=== PATIENT | female | born 1940 | race African-American/Black ===

== ENCOUNTER 2023-08-22 13:43 | Inpatient (IN) | payer MEDICARE, OTHER ==
[~2023-08-22] VITALS: Ht 160 cm; Wt 76.0 kg
[2023-08-22] MEDS ORDERED: TELM80TA10 PO (13:48)
[2023-08-22] MEDS ORDERED: LATA2.5D14 OU (13:48)
[2023-08-22] MEDS ORDERED: NIFE90TA72 PO (13:48)
[2023-08-22] MEDS ORDERED: CARV25TA32 PO (13:48)
[2023-08-22] MEDS ORDERED: CLOP75TA32 PO (13:48)
[2023-08-22] MEDS ORDERED: SPIR50TA27 PO (13:48)
[2023-08-22] MEDS ORDERED: SPIR100T5 PO (13:48)
[2023-08-22] MEDS ORDERED: ACET325T51 PO (13:48)
[2023-08-22] MEDS ORDERED: RABE20TA30 PO (13:48)
[2023-08-22] MEDS ORDERED: ATOR40TA71 PO (13:48)
[2023-08-22] MEDS ORDERED: SODIUM CHLORIDE 0.9% 100 ML ONE ×2 (14:13)
[2023-08-22] MEDS ORDERED: IOHEXOL 350 MG/ML 100 ML VIAL ONE (14:13)
[2023-08-22] MEDS ORDERED: LABETALOL HCL 5 MG/ML 20 ML VIAL IVP PRN (14:15)
[2023-08-22] MEDS: TENECTEPLASE PER STROKE PROTOCOL CLINICAL ONE (14:15)
[2023-08-22] MEDS ORDERED: NiCARDipine HCL 25 MG in SODIUM CHLORIDE 0.9% 240 ML IV PRN (14:15)
[2023-08-22] MEDS ORDERED: ACETAMINOPHEN 650 MG RECTAL SUPPOSITORY PR PRN (14:15)
[2023-08-22] MEDS ORDERED: DEXTROSE 50%-WATER 25 GM/50 ML SYRINGE IVP PRN (14:15)
[2023-08-22] MEDS ORDERED: HYDROmorphone HCL 2 MG/ML SYRINGE IVP PRN (14:15)
[2023-08-22] MEDS ORDERED: MORPHINE SULFATE 4 MG/ML SYRINGE IVP PRN (14:15)
[2023-08-22] MEDS ORDERED: MORPHINE SULFATE 2 MG/ML SYRINGE IVP PRN ×2 (14:15→19:00)
[2023-08-22] MEDS ORDERED: ACETAMINOPHEN 1000 MG/ISO-OSM 100 ML IV PRN (14:15)
[2023-08-22] MEDS ORDERED: ONDANSETRON HCL 4 MG/2 ML VIAL IVP PRN ×2 (14:15→19:00)
[2023-08-22] MEDS: TENECTEPLASE 50 MG/10 ML KIT IVP ONE (14:25)
[2023-08-22 14:27] LABS: BASOPHILS % (AUTO) 0.8 % (0.0-2.0); EOSINOPHILS % (AUTO) 5.5 % (1.0-6.0); HEMATOCRIT 33.5 % (36-46); HEMOGLOBIN 11.1 g/dL (12.0-16.0); LYMPHOCYTES # (AUTO) 1.6 K/uL (1.0-4.8); LYMPHOCYTES % (AUTO) 22.5 % (22.0-44.0); MEAN CORPUSCULAR HEMOGLOBIN 31.8 pg (26.0-34.0); MEAN CORPUSCULAR HGB CONC 33.1 G/dL (31.0-37.0); MEAN CORPUSCULAR VOLUME 96 fL (80-100); MONOCYTES # (AUTO) 0.7 K/uL (0.1-1.0); MONOCYTES % (AUTO) 9.1 % (2.0-9.0); NEUTROPHILS # (AUTO) 4.5 K/uL (1.8-7.7); NEUTROPHILS % (AUTO) 62.1 % (40.0-70.0); PLATELET COUNT (AUTO) 238 K/uL (150-450); RED BLOOD CELL COUNT(AUTO) 3.48 MIL/uL (4.00-5.20); RED CELL DISTRIBUTION WIDTH 13.8 % (11.5-14.5); WHITE BLOOD COUNT (AUTO) 7.2 K/uL (4.5-11.0)
[2023-08-22 14:30] LABS: INR 1.1 (0.9-1.1); PROTHROMBIN TIME 11.4 SEC (9.4-11.6)
[2023-08-22 14:33] LABS: CALCIUM, TOTAL 9.5 mg/dL (8.8-10.5); CREATININE 1.58 mg/dL (0.60-1.30); POTASSIUM 4.6 mmol/L (3.5-5.1)
[2023-08-22] MEDS: -PHARMACY NOTE- MISC SCH (14:36)
[2023-08-22] MEDS: SODIUM CHLORIDE 0.9% 1,000 ML IV SCH (14:37)
[2023-08-22 14:41] LABS: TROPONIN I-HIGH SENSITIVITY 19 ng/L (<51)
[2023-08-22 14:50] LABS: ALBUMIN 3.3 g/dL (3.4-5.0); BILIRUBIN,TOTAL 0.3 mg/dL (0.1-1.0); TOTAL PROTEIN, SERUM 7.4 g/dL (6.4-8.2)
[2023-08-22 15:59] LABS: CHOL/HDL RATIO 1.7 (3.9-5.7)
[2023-08-22] MEDS ORDERED: ZOLPIDEM TARTRATE 5 MG TABLET PO PRN (19:00)
[2023-08-22] MEDS ORDERED: MAGNESIUM HYDROXIDE SUSPENSION 30 ML UDCUP PO PRN (19:00)
[2023-08-22] MEDS ORDERED: ALBUTEROL SULFATE 2.5 MG/0.5 ML NEB SOLUTION NEB PRN (19:00)
[2023-08-22] MEDS ORDERED: IPRATROPIUM BROMIDE 0.5 MG/2.5 ML NEB SOLUTION NEB PRN (19:00)
[2023-08-22] MEDS ORDERED: BISACODYL 10 MG RECTAL RECTAL SUPPOSITORY PR PRN (19:00)
[2023-08-22] MEDS ORDERED: HYDROCODONE/ACETAMINOPHEN 5-325 MG TABLET PO PRN (19:00)
[2023-08-22] MEDS: PANTOPRAZOLE SODIUM 40 MG/VIAL IVP SCH (19:47)
[2023-08-22] MEDS: OXYGEN THERAPY IH SCH (20:00)
[2023-08-22 20:12] LABS: TROPONIN I-HIGH SENSITIVITY 167 ng/L (<51)
[2023-08-22] MEDS: ATORVASTATIN CALCIUM 40 MG TABLET PO ONE (22:27)
[2023-08-22] MEDS: ETHYL ALCOHOL 62% ANTISEPTIC NASAL SANITIZER 0.6 ML AMPUL NASAL SCH (22:27)
[2023-08-23] VITALS: BP 154/62; PULSE 82; RESP 25; TEMP 98.2
[2023-08-23 02:37] LABS: TROPONIN I-HIGH SENSITIVITY 126 ng/L (<51)
[2023-08-23 04:00] VITALS: BP 145/80; PULSE 82; RESP 21; TEMP 98.3
[2023-08-23 04:11] LABS: CHOL/HDL RATIO 1.8 (3.9-5.7)
[2023-08-23 06:02] LABS: BASOPHILS % (AUTO) 0.8 % (0.0-2.0); EOSINOPHILS % (AUTO) 3.8 % (1.0-6.0); HEMATOCRIT 37.3 % (36-46); HEMOGLOBIN 12.3 g/dL (12.0-16.0); LYMPHOCYTES % (AUTO) 20.7 % (22.0-44.0); MEAN CORPUSCULAR HEMOGLOBIN 31.7 pg (26.0-34.0); MEAN CORPUSCULAR HGB CONC 32.9 G/dL (31.0-37.0); MEAN CORPUSCULAR VOLUME 96 fL (80-100); MONOCYTES # (AUTO) 0.8 K/uL (0.1-1.0); MONOCYTES % (AUTO) 8.6 % (2.0-9.0); NEUTROPHILS # (AUTO) 6.3 K/uL (1.8-7.7); NEUTROPHILS % (AUTO) 66.1 % (40.0-70.0); PLATELET COUNT (AUTO) 259 K/uL (150-450); RED BLOOD CELL COUNT(AUTO) 3.87 MIL/uL (4.00-5.20); RED CELL DISTRIBUTION WIDTH 13.6 % (11.5-14.5); WHITE BLOOD COUNT (AUTO) 9.6 K/uL (4.5-11.0)
[2023-08-23 06:11] LABS: CALCIUM, TOTAL 9.9 mg/dL (8.8-10.5); CREATININE 1.2 mg/dL (0.60-1.30); POTASSIUM 4.3 mmol/L (3.5-5.1)
[2023-08-23 08:00] VITALS: BP 156/88; PULSE 80; RESP 25; TEMP 98.1
[2023-08-23] MEDS: ACETAMINOPHEN 325 MG TABLET PO PRN (08:29)
[2023-08-23] MEDS: ATORVASTATIN CALCIUM 40 MG TABLET PO SCH (09:36)
[2023-08-23 12:00] VITALS: BP 139/72; PULSE 80; RESP 19; TEMP 98.6
[2023-08-23] MEDS: ASPIRIN 81 MG CHEWABLE TABLET PO SCH (15:09)
[2023-08-23 16:00] VITALS: BP 135/66; PULSE 73; RESP 17; TEMP 98.8
[2023-08-23 20:00] VITALS: BP 162/86; PULSE 78; RESP 19; TEMP 98.2
[2023-08-24] VITALS (13 sets, daily range): BP systolic 136–192; BP diastolic 72–97; PULSE 67–95; RESP 15–19; TEMP 97.7–98.4
[2023-08-24] MEDS ORDERED: HydrALAZINE HCL 20 MG/ML VIAL IVP PRN (03:45)
[2023-08-24] MEDS: NIFEdipine 10 MG CAPSULE PO ONE (04:07)
[2023-08-24 06:07] LABS: BASOPHILS % (AUTO) 0.5 % (0.0-2.0); EOSINOPHILS % (AUTO) 3.7 % (1.0-6.0); HEMATOCRIT 34.2 % (36-46); HEMOGLOBIN 11.5 g/dL (12.0-16.0); LYMPHOCYTES % (AUTO) 23.8 % (22.0-44.0); MEAN CORPUSCULAR HEMOGLOBIN 32.5 pg (26.0-34.0); MEAN CORPUSCULAR HGB CONC 33.6 G/dL (31.0-37.0); MEAN CORPUSCULAR VOLUME 97 fL (80-100); MONOCYTES % (AUTO) 11.2 % (2.0-9.0); NEUTROPHILS # (AUTO) 5.2 K/uL (1.8-7.7); NEUTROPHILS % (AUTO) 60.8 % (40.0-70.0); PLATELET COUNT (AUTO) 212 K/uL (150-450); RED BLOOD CELL COUNT(AUTO) 3.54 MIL/uL (4.00-5.20); RED CELL DISTRIBUTION WIDTH 13.5 % (11.5-14.5); WHITE BLOOD COUNT (AUTO) 8.5 K/uL (4.5-11.0)
[2023-08-24 06:22] LABS: CALCIUM, TOTAL 9.1 mg/dL (8.8-10.5); CREATININE 1.25 mg/dL (0.60-1.30); POTASSIUM 4.1 mmol/L (3.5-5.1)
[2023-08-24] MEDS ORDERED: ATOR10TA PO (16:29)
[2023-08-24] MEDS ORDERED: ASPI-1450 PO (16:29)
[2023-08-24] MEDS: NIFEdipine 60 MG ER TABLET PO ONE (17:31)
[2023-08-24] MEDS: TELMISARTAN 40 MG TABLET PO SCH (20:12)
[2023-08-24] MEDS: LATANOPROST 0.005% 2.5 ML OPHTHALMIC SOLUTION OU SCH (20:12)
[2023-08-24] MEDS: CARVEDILOL 25 MG TABLET PO SCH (20:12)
[2023-08-24] MEDS: NIFEdipine 90 MG ER TABLET PO SCH (20:12)
[2023-08-25] VITALS (7 sets, daily range): BP systolic 122–153; BP diastolic 62–71; PULSE 68–79; RESP 18; TEMP 98.1–98.2
[2023-08-25] MEDS ORDERED: MAG HYDROX/ALUMINUM HYD/SIMETH 30 ML SUSPENSION UDCUP PO PRN (05:30)
[2023-08-25 05:50] LABS: BASOPHILS % (AUTO) 0.8 % (0.0-2.0); EOSINOPHILS % (AUTO) 3.3 % (1.0-6.0); HEMATOCRIT 35.1 % (36-46); HEMOGLOBIN 11.6 g/dL (12.0-16.0); LYMPHOCYTES % (AUTO) 18.9 % (22.0-44.0); MEAN CORPUSCULAR HGB CONC 33.1 G/dL (31.0-37.0); MEAN CORPUSCULAR VOLUME 97 fL (80-100); MONOCYTES # (AUTO) 1.1 K/uL (0.1-1.0); MONOCYTES % (AUTO) 10.1 % (2.0-9.0); NEUTROPHILS % (AUTO) 66.9 % (40.0-70.0); PLATELET COUNT (AUTO) 221 K/uL (150-450); RED BLOOD CELL COUNT(AUTO) 3.63 MIL/uL (4.00-5.20); RED CELL DISTRIBUTION WIDTH 13.7 % (11.5-14.5); WHITE BLOOD COUNT (AUTO) 10.5 K/uL (4.5-11.0)
[2023-08-25 06:12] LABS: CALCIUM, TOTAL 9.2 mg/dL (8.8-10.5); CREATININE 1.24 mg/dL (0.60-1.30); POTASSIUM 4.1 mmol/L (3.5-5.1)
[2023-08-25] MEDS: SPIRONOLACTONE 50 MG TABLET PO SCH (08:15)
[2023-08-25] MEDS: CLOPIDOGREL BISULFATE 75 MG TABLET PO SCH (08:15)
[2023-08-25] MEDS ORDERED: ASPIRIN 81 MG CHEWABLE TABLET PO SCH (09:00)
[2023-08-25] MEDS ORDERED: [UNRECOGNIZED DRUG - OTHER] PO SCH (09:00)
== END 2023-08-25 13:10 | disposition home or self-care (01) | DRG 62 ==
LOC: EMS 13:43 → EDH 19:41 → ICU 20:56 → 5S 08-24 07:41
PROVIDERS: ADMIT Hospitalist; ATTEND Hospitalist
DX: I63.9 Cerebral infarction, unspecified (principal); G81.91 Hemiplegia, unspecified affecting right dominant side; D64.9 Anemia, unspecified; I10 Essential (primary) hypertension; R29.708 NIHSS score 8; W18.39XA Other fall on same level, initial encounter; Z79.02 Long term (current) use of antithrombotics/antiplatelets; Z79.82 Long term (current) use of aspirin; Z79.899 Other long term (current) drug therapy; Y93.89 Activity, other specified; Y92.89 Other specified places as the place of occurrence of the external cause; Y99.8 Other external cause status
CPT/HCPCS: 70450; 70496; 70498; 80048; 80053; 80061; 82948; 84484; 85025; 85610; 85730; 87081; 92610; 93005; 93306; 97116; 97162; 97166; 97535; 99285; C9113; J3101; J3490; J7030; J7050; Q9967

== ENCOUNTER 2024-12-26 13:32 | Inpatient (IN) | payer MEDICARE, OTHER ==
[~2024-12-26] VITALS: Ht 157.5 cm; Wt 70.5 kg
[~2024-12-26 13:32] MED LIST: ACET-3862 PO; ASPI-1450 PO; ATOR40TA71 PO; CARV25TA32 PO; CLOP75TA32 PO; LATA2.5D7 OU; NIFE90TA72 PO; RABE20TA31 PO; SPIR100T5 PO; SPIR50TA27 PO; TELM80TA10 PO
[2024-12-26 14:35] LABS: GLUCOMETER DEV NAME(LOC) ERT.7; GLUCOSE,POINT OF CARE 115 MG/DL (70-110)
[2024-12-26 15:19] LABS: COVID AG,FIA SOURCE NPH
[2024-12-26 15:29] LABS: PLATELET COUNT (AUTO) 152 K/uL (150-450); RED BLOOD CELL COUNT(AUTO) 3.68 MIL/uL (4.00-5.20); RED CELL DISTRIBUTION WIDTH 14.7 % (11.5-14.5); WHITE BLOOD COUNT (AUTO) 12.3 K/uL (4.5-11.0)
[2024-12-26 15:45] LABS: SARS-COV2 (COVID) ANTIGEN,FIA Negative (Negative)
[2024-12-26 15:51] LABS: CALCIUM, TOTAL 9.3 mg/dL (8.8-10.5); CREATININE 2.09 mg/dL (0.60-1.30); GLOMERULAR FILTR. RATE CALC 27.0 mL/min (>60); GLUCOSE,RANDOM 109.0 mg/dL (70-110); SODIUM SERUM 139.0 mmol/L (136-145); UREA NITROGEN, BLOOD 46.0 mg/dL (7-18)
[2024-12-26 16:01] LABS: ALCOHOL, BLOOD (SERUM) < 3 mg/dL (0-10)
[2024-12-26] MEDS: SODIUM CHLORIDE 0.9% 1,000 ML IV ONE ×2 (17:00→22:25)
[2024-12-26] MEDS ORDERED: NIFE-56 PO (17:09)
[2024-12-26 17:13] LABS: APPEARANCE,URINE HAZY (CLEAR); GLUCOSE, URINE (UA) NEGATIVE (NEGATIVE); LEUKOCYTE ESTERASE ,URINE TRACE (NEGATIVE); NITRATE,URINE NEGATIVE (NEGATIVE); OCCULT BLOOD,URINE NEGATIVE (NEGATIVE); PH,URINE DRUG SCREEN 5.5 (5.0-8.0); SPECIFIC GRAVITIY, URINE 1.019 (1.003-1.030)
[2024-12-26 17:28] LABS: SQUAMOUS EPITHELIAL CELL,UR Few /LPF (None Seen)
[2024-12-26 17:38] LABS: ALCOHOL, URINE DRUG SCREEN NEGATIVE (NEGATIVE); AMPHET/METH SCREEN,URINE NEGATIVE (NEGATIVE); BARBITURATE SCREEN, URINE NEGATIVE (NEGATIVE); CANNABINOID SCREEN,URINE NEGATIVE (NEGATIVE); COCAINE SCREEN,URINE NEGATIVE (NEGATIVE); METHADONE SCREEN, URINE NEGATIVE (NEGATIVE)
[2024-12-26] MEDS ORDERED: BISACODYL 10 MG RECTAL RECTAL SUPPOSITORY PR PRN (21:00)
[2024-12-26] MEDS ORDERED: MAGNESIUM HYDROXIDE SUSPENSION 30 ML UDCUP PO PRN (21:00)
[2024-12-26] MEDS ORDERED: ONDANSETRON HCL 4 MG/2 ML VIAL IVP PRN (21:00)
[2024-12-26] MEDS ORDERED: ZOLPIDEM TARTRATE 5 MG TABLET PO PRN (21:00)
[2024-12-26] MEDS ORDERED: CefTRIAXone 1 GM/DEXTROSE 50 ML IV SCH (21:15)
[2024-12-26] MEDS: CefTRIAXone 1 GM/DEXTROSE 50 ML IV SCH (22:24)
[2024-12-26] MEDS: DOCUSATE SODIUM 100 MG CAPSULE PO SCH (22:25)
[2024-12-26 23:28] VITALS: BP 128/87; PULSE 80; RESP 18; TEMP 98.4; O2SAT 98
[2024-12-27] MEDS: HEPARIN SODIUM,PORCINE 5,000 UNITS/ML VIAL SQ SCH (00:04)
[2024-12-27 04:00] VITALS: BP 108/95; PULSE 85; RESP 18; TEMP 98; O2SAT 97
[2024-12-27 06:18] LABS: PLATELET COUNT (AUTO) 160 K/uL (150-450); RED BLOOD CELL COUNT(AUTO) 3.36 MIL/uL (4.00-5.20); RED CELL DISTRIBUTION WIDTH 14.5 % (11.5-14.5); WHITE BLOOD COUNT (AUTO) 7.9 K/uL (4.5-11.0)
[2024-12-27 06:38] LABS: CALCIUM, TOTAL 8.8 mg/dL (8.8-10.5); CREATININE 1.67 mg/dL (0.60-1.30); GLOMERULAR FILTR. RATE CALC 35.0 mL/min (>60); GLUCOSE,RANDOM 77.0 mg/dL (70-110); SODIUM SERUM 143.0 mmol/L (136-145); UREA NITROGEN, BLOOD 40.0 mg/dL (7-18)
[2024-12-27 08:15] VITALS: BP 130/53; PULSE 76; RESP 18; TEMP 98.2; O2SAT 99
[2024-12-27] MEDS: ASPIRIN 81 MG CHEWABLE TABLET PO SCH (09:00)
[2024-12-27] MEDS: PANTOPRAZOLE SODIUM 40 MG DR TABLET PO SCH (09:00)
[2024-12-27] MEDS: ATORVASTATIN CALCIUM 40 MG TABLET PO SCH (09:00)
[2024-12-27] MEDS: CLOPIDOGREL BISULFATE 75 MG TABLET PO SCH (09:00)
[2024-12-27 15:19] VITALS: BP 101/67; PULSE 89; RESP 18; TEMP 97.9; O2SAT 96
[2024-12-27] MEDS: MORPHINE SULFATE 4 MG/ML SYRINGE IVP PRN (16:25)
[2024-12-27 16:38] VITALS: BP 114/97; PULSE 67; RESP 18; TEMP 97.1; O2SAT 100
[2024-12-27 20:00] VITALS: BP 113/72; PULSE 67; RESP 18; TEMP 98.4; O2SAT 97
[2024-12-27] MEDS ORDERED: SODIUM CHLORIDE 0.9% 500 ML IV ONE (20:12)
[2024-12-28 02:19] VITALS: BP 137/91; PULSE 79; RESP 18; TEMP 97.9; O2SAT 97
[2024-12-28 06:33] LABS: PLATELET COUNT (AUTO) 162 K/uL (150-450); RED BLOOD CELL COUNT(AUTO) 3.44 MIL/uL (4.00-5.20); RED CELL DISTRIBUTION WIDTH 14.0 % (11.5-14.5); WHITE BLOOD COUNT (AUTO) 5.5 K/uL (4.5-11.0)
[2024-12-28 06:43] LABS: CALCIUM, TOTAL 8.7 mg/dL (8.8-10.5); CREATININE 1.33 mg/dL (0.60-1.30); GLOMERULAR FILTR. RATE CALC 46.0 mL/min (>60); GLUCOSE,RANDOM 64.0 mg/dL (70-110); SODIUM SERUM 140.0 mmol/L (136-145); UREA NITROGEN, BLOOD 29.0 mg/dL (7-18)
[2024-12-28] MEDS: ACETAMINOPHEN 325 MG TABLET PO PRN (08:24)
[2024-12-28 08:30] VITALS: BP 128/64; PULSE 78; RESP 19; TEMP 97.5; O2SAT 100
[2024-12-28] MEDS: DEXTROSE 5%-0.45% SODIUM CHL 1,000 ML IV ONE (10:47)
[2024-12-28] MEDS ORDERED: HEPA50009 SQ (15:03)
[2024-12-28] MEDS ORDERED: DOCU50LI40 PO (15:03)
[2024-12-28] MEDS ORDERED: ACET-2247 PO (15:04)
[2024-12-28] MEDS ORDERED: PANT-31 PO (15:05)
[2024-12-28] MEDS ORDERED: MAGN-169 PO (15:05)
[2024-12-28] MEDS ORDERED: BISA-151 PR (15:06)
[2024-12-28 16:09] VITALS: BP 179/78; PULSE 74; RESP 18; TEMP 98.1; O2SAT 100
[2024-12-28 17:42] VITALS: BP 145/102
[2024-12-28] MEDS: LORazepam 2 MG/ML VIAL IVP PRN (17:58)
[2024-12-28 20:00] VITALS: BP 147/83; PULSE 72; RESP 18; TEMP 98.3; O2SAT 95
[2024-12-29 04:00] VITALS: BP 147/93; PULSE 66; RESP 20; TEMP 97.7; O2SAT 99
[2024-12-29 06:04] LABS: PLATELET COUNT (AUTO) 166 K/uL (150-450); RED BLOOD CELL COUNT(AUTO) 3.43 MIL/uL (4.00-5.20); RED CELL DISTRIBUTION WIDTH 14.0 % (11.5-14.5); WHITE BLOOD COUNT (AUTO) 5.9 K/uL (4.5-11.0)
[2024-12-29 06:16] LABS: GLUCOMETER DEV NAME(LOC) 6S.2; GLUCOSE,POINT OF CARE 159 MG/DL (70-110)
[2024-12-29 06:17] LABS: CALCIUM, TOTAL 9.0 mg/dL (8.8-10.5); CREATININE 1.23 mg/dL (0.60-1.30); GLOMERULAR FILTR. RATE CALC 50.0 mL/min (>60); GLUCOSE,RANDOM 80.0 mg/dL (70-110); SODIUM SERUM 141.0 mmol/L (136-145); UREA NITROGEN, BLOOD 21.0 mg/dL (7-18)
[2024-12-29 08:00] VITALS: BP 172/78
[2024-12-29 11:05] VITALS: BP 128/84
[2024-12-29] MEDS: HYDROCODONE/ACETAMINOPHEN 5-325 MG TABLET PO PRN (14:35)
== END 2024-12-29 16:36 | DRG 682 ==
LOC: EMS 13:32 → EDH 20:55 → 6S 23:05
PROVIDERS: ADMIT Internal Medicine; ATTEND Internal Medicine
PROC: GZ58ZZZ Individual Psychotherapy, Cognitive-Behavioral (ICD-10-PCS; principal; 2024-12-28)
PROC: GZ56ZZZ Individual Psychotherapy, Supportive (ICD-10-PCS; 2024-12-28)
DX: N17.9 Acute kidney failure, unspecified (principal); G93.41 Metabolic encephalopathy; F01.511 Vascular dementia, unspecified severity, with agitation; N39.0 Urinary tract infection, site not specified; I10 Essential (primary) hypertension; E78.5 Hyperlipidemia, unspecified; Z20.822 Contact with and (suspected) exposure to COVID-19; E86.0 Dehydration; F20.3 Undifferentiated schizophrenia; Z85.3 Personal history of malignant neoplasm of breast; Z79.82 Long term (current) use of aspirin; Z79.899 Other long term (current) drug therapy
CPT/HCPCS: 71045; 80048; 80307; 81001; 82962; 84443; 85025; 87081; 96361; 96365; 99285; G0480; J0696; J1644; J2060; J2270; J7030; J7040; 36415-L1; 36415-TC